=== PATIENT | female | born 1995 | race Caucasian/White ===

== ENCOUNTER 2021-05-23 17:03 | Emergency (ER) | payer OTHER ==
[~2021-05-23] VITALS: Ht 162.6 cm; Wt 55.8 kg
[2021-05-23 17:19] VITALS: BP 130/76
[2021-05-23] MEDS ORDERED: NOHOMEMEDICATIONS (17:23)
[2021-05-23] MEDS ORDERED: AMOXICILLIN 50500 MG PO (17:46)
== END 2021-05-23 18:01 | disposition home or self-care (01) ==
LOC: ER 17:03
DX: K04.7 Periapical abscess without sinus (principal)